=== PATIENT | female | born 1980 ===

== ENCOUNTER 2017-12-28 19:09 | Emergency (ER) | payer OTHER, MEDICAID ==
[~2017-12-28] VITALS: Ht 170.2 cm; Wt 94.7 kg
[2017-12-28] MEDS ORDERED: PROCHLORPERAZINE 5 MG/ML, 2ML ONE (19:19)
[2017-12-28] MEDS ORDERED: KETOROLAC 30 MG/1 ML ONE (19:20)
[2017-12-28] MEDS ORDERED: DIPHENHYDRAMINE 50 MG/ML, 1ML ONE (19:20)
[2017-12-28] MEDS ORDERED: PROCHLORPERAZINE 5 MG/ML, 2ML IVPush ONE (19:30)
[2017-12-28] MEDS ORDERED: DIPHENHYDRAMINE 50 MG/ML, 1ML IVPush ONE (19:30)
[2017-12-28] MEDS ORDERED: KETOROLAC 30 MG/1 ML IVPush ONE (19:30)
[2017-12-28 21:27] VITALS: BP 138/83
== END 2017-12-28 21:55 | disposition home or self-care (01) ==
LOC: ED 20:13
DX: G43.009 Migraine without aura, not intractable, without status migrainosus (principal)
CPT/HCPCS: 70450; 96374; 96375; 99284; J0780; J1200; J1885

== ENCOUNTER 2017-12-30 13:26 | Emergency (ER) | payer OTHER, MEDICAID ==
[~2017-12-30] VITALS: Ht 170.2 cm; Wt 96.8 kg
[2017-12-30] MEDS ORDERED: CEPHALEXIN 500 MG CAPSULE ONE (14:34)
[2017-12-30] MEDS ORDERED: CEPHALEXIN 500 MG CAPSULE PO ONE (15:00)
[2017-12-30 15:19] VITALS: BP 126/86
== END 2017-12-30 15:21 | disposition home or self-care (01) ==
LOC: ED 15:05
DX: L03.114 Cellulitis of left upper limb (principal); G43.909 Migraine, unspecified, not intractable, without status migrainosus
CPT/HCPCS: 99283